=== PATIENT | male | born 1985 | race Caucasian/White ===

== ENCOUNTER 2025-02-28 11:38 | Emergency (ER) | payer OTHER ==
[~2025-02-28] VITALS: Ht 188 cm; Wt 96.0 kg
[2025-02-28 12:12] LABS: BASOPHILS 0.2 % (0.2-1.2); EOSINOPHILS 0.4 % (0.8-7.0); LYMPHOCYTES 4.2 % (21.8-53.1); MCH 31.7 PG (25.7-32.2); MCHC 35.8 g/dL (32.3-36.5); MCV 88.6 fL (79.0-92.2); MONOCYTES 12.7 % (5.3-12.2); NEUTROPHILS 82.3 % (34.0-67.9); RBC 5.08 M/uL (4.63-6.08)
[2025-02-28] MEDS ORDERED: ACETAMINOPHEN 500 MG TAB PO ONE (12:15)
[2025-02-28] MEDS ORDERED: SODIUM CHLORIDE 0.9% 2,500 ML IV PRN (12:15)
[2025-02-28 12:24] LABS: INR 1.05 (0.80-1.30); PROTIME 13.3 Sec (11.2-14.2)
[2025-02-28 12:29] LABS: ALT (SGPT) 36.0 U/L (14-59); AST (SGOT) 17.0 U/L (15-37); GLOMERULAR FILTRATION RATE,EST 92.0 mL/min (>60); PROTEIN, TOTAL 8.1 g/dL (6.4-8.2); UREA NITROGEN 11.0 mg/dL (7-18)
[2025-02-28 12:32] LABS: LACTIC ACID, BLOOD 1.2 mmol/L (0.4-2.0)
[2025-02-28 12:33] LABS: CORONAVIRUS COVID-19 AG POSITIVE (NEGATIVE)
[2025-02-28] MEDS ORDERED: PAXLOVID 150-11 EAC2 PO (12:48)
[2025-02-28] MEDS ORDERED: DAPAGLIFLOZIN10 MG PO (13:03)
[2025-02-28] MEDS ORDERED: CLOPIDOGREL75 MG PO (13:03)
[2025-02-28] MEDS ORDERED: EPLERENONE25 MG PO (13:03)
[2025-02-28 13:04] VITALS: BP 116/80
[2025-02-28] MEDS ORDERED: METOPROLOL SUCC25 MG PO (13:04)
[2025-02-28] MEDS ORDERED: ROSUVASTATIN CA40 MG PO (13:04)
[2025-02-28] MEDS ORDERED: PANTOPRAZOLE SO40 MG PO (13:04)
--- NOTE | 2025-02-28 23:25 | EKG ---
[facility] [address] [place] [address] Signed Sinus tachycardia Left anterior fascicular block Anterolateral infarct , age undetermined Abnormal ECG No previous ECGs available Confirmed by Cyrus Camarena MD () on 02/28/2025 11:25:07 PM Electronically Signed By: CYRUS CAMARENA MD 02/28/25 2325 PATIENT NAME: DANNIETRICIA SHAYLA Electrocardiogram DATE OF : 87 PHYSICIAN: CYRUS CAMARENA MD REPORT #: [id number] REPORT IS CONFIDENTIAL AND NOT TO BE RELEASED WITHOUT AUTHORIZATION
== END 2025-02-28 13:05 | disposition home or self-care (01) ==
LOC: ED 11:38
PROVIDERS: Emergency Medicine
DX: U07.1 COVID-19 (principal); I25.2 Old myocardial infarction; Z95.5 Presence of coronary angioplasty implant and graft; Z88.0 Allergy status to penicillin; Z79.02 Long term (current) use of antithrombotics/antiplatelets; Z79.899 Other long term (current) drug therapy
CPT/HCPCS: 36415; 71045; 80053; 83605; 85025; 85610; 85730; 87040; 87502; 93005; 93010; 96365; 99284-25; A9270; J0696; U0002